=== PATIENT | female | born 1955 | race Caucasian/White ===

== ENCOUNTER 2016-07-29 20:28 | Emergency (ER) | payer OTHER, BC ==
[~2016-07-29] VITALS: Ht 167.6 cm; Wt 76.1 kg
[~2016-07-29 20:28] MED LIST: ACET-749 PO; ASCA500 PO; CARB1CAP9 PO; CLB200 PO; FSM70 PO; MULT-506 PO; VITA400C15 PO
[2016-07-29 20:32] VITALS: BP 142/87; PULSE 76; TEMP 36.8; O2SAT 95; Ht 167.6 cm; Wt 76.1 kg
[2016-07-29] MEDS ORDERED: CALC500C70 PO (20:45)
[2016-07-29] MEDS ORDERED: OMEG10007 PO (20:45)
[2016-07-29] MEDS ORDERED: CYCL0.052 OPB (20:45)
[2016-07-29] MEDS ORDERED: DOXY50CA PO (20:50)
[2016-07-29] MEDS ORDERED: DIPHTHERIA/TETANUS/PERTUSSIS 0.5 ML SYR/VIAL IM. ONE (21:30)
--- NOTE | 2016-07-29 21:49 | EMERGENCY ROOM VISIT NOTE ---
ED Visit Note First contact with patient: 20:42 CHIEF COMPLAINT: Body Fluid exposure HPI: This 61-year-old female presents to the Emergency Department ambulatory for evaluation of a body fluid exposure which occurred just prior to arrival. Patient reports that she was checking a patient's blood sugar and stuck herself in the right second digit with the lancet when it did not fully retract. The wound has already been cleansed. Bleeding is controlled. They deny numbness, tingling, or loss of motion. Source patient is not known at this time. History of the source patient is not known at this time. The patient works at [employer]. They have had the hepatitis B. vaccination, and titers are positive. They believe their tetanus is not up-to-date. Pain is 2/ 10. ALLERGIES: Meperidine, penicillins MEDICATIONS: See med list PMH: No significant past medical history. SOCIAL HISTORY: The patient lives locally with family. Nonsmoker, denies alcohol use. Physical Exam: VITALS: Nursing notes reviewed and vitals are stable. GENERAL: This is a 61-year-old female, in no acute distress, well developed, well nourished. SKIN: Warm and dry with good turgor. No abrasions. There is a solitary puncture kerwin present at the lateral aspect of the right second finger. Bleeding is controlled. No edema. Capillary refill is 2+. MUSCULOSKELETAL: Patient has full active range of motion of the finger. Normal strength. NEURO: Gross sensation is intact across the finger. ED COURSE: I examined the patient. Option of HIV, hepatitis C, and hepatitis B testing was discussed with the patient. The risks, benefits, purpose, and limitations of the tests were explained to the patient and all of their questions were answered. They elected to proceed. I did perform pretest counseling and the appropriate consent forms were signed. Patient was given information on prevention of exposure and transmission as well as hospital confidentiality. Blood exposure handout was provided. The patient's blood was drawn. Risks and benefits of HIV prophylaxis were discussed with the patient. The patient elected to decline HIV prophylaxis at this time. They will follow -up with employee health. Wound care instructions were provided. The patient was discharged in stable condition. Impression: Body fluid exposure Plan: Follow up with employee health for further evaluation, treatment, and test results. Current/Historical Medications Scheduled Calcium/Vitamin D (Os-Dk 500 Plus D), 2 TABS PO BID Carbamazepine (Carbatrol Er), 600 MG PO BID Cyclosporine (Ophth) (Restasis), 1 DROP OPB BID Doxycycline Hyclate (Vibramycin), 50 MG PO DAILY Fish Oil ([place]-3), 2 CAP PO BID Allergies Coded Allergies: Meperidine (Unverified Allergy, Mild, 06/11/09) Penicillins (Unverified Allergy, Mild, 06/11/09) Vital Signs Date Time Temp Pulse Resp B/P Pulse Ox O2 Delivery O2 Flow Rate FiO2 07/29/16 20:32 36.8 76 18 142/87 95 Room Air Laboratory Results Test 07/30/16 08:14 Lab Scanned Report Doc of Significant Medications Administered Medications (Trade) Dose Ordered Sig/Brady Route Start Time Stop Time Status Last Admin Dose Admin Diphtheria/ Pertussis/Tetanus Vacc (Adacel Inj) 0.5 ml ONCE ONCE IM. 07/29/16 21:30 07/29/16 21:31 DC 07/29/16 22:00 0.5 ML Departure Information Impression Primary Impression: Needle stick injury Dispostion Home / Self-Care Condition GOOD Referrals Nathan Beach PA-C (PCP) Wendy Thomson Patient Instructions [facility] [employer] Additional Instructions Follow-up with employee health. Problem Qualifiers Primary Impression: Needle stick injury Encounter type: initial encounter Qualified Codes: W27.3XXA - Contact with needle (sewing), initial encounter
== END 2016-07-29 22:02 | disposition home or self-care (01) ==
LOC: C.EDB 20:29 → C.EDD 22:02
DX: W46.1XXA Contact with contaminated hypodermic needle, initial encounter (principal); X58.XXXA Exposure to other specified factors, initial encounter; Z77.21 Contact with and (suspected) exposure to potentially hazardous body fluids; Y99.0 Civilian activity done for income or pay

== ENCOUNTER → 2017-05-31 | Outpatient (CLI) | payer OTHER ==
[~2017-05-31] VITALS: Ht 162.6 cm; Wt 75.8 kg
[~2017-05-31] MED LIST changes: -ACET-749 PO; -ASCA500 PO; +CALC500C70 PO; -CLB200 PO; +CYCL0.052 OPB; +DOXY50CA PO; -FSM70 PO; -MULT-506 PO; +OMEG10007 PO; -VITA400C15 PO
[2017-05-31 09:32] VITALS: BP 124/84; PULSE 78; Ht 162.6 cm; Wt 75.8 kg
== END | disposition home or self-care (01) ==
LOC: C.NEUR 08:50
PROVIDERS: ATTEND Internal Medicine Pulmonary Disease
DX: G47.33 Obstructive sleep apnea (adult) (pediatric) (principal); Z99.89 Dependence on other enabling machines and devices; G47.00 Insomnia, unspecified; G47.61 Periodic limb movement disorder; F45.8 Other somatoform disorders